=== PATIENT | female | born 1970 | race Caucasian/White ===

== ENCOUNTER 2017-06-01 12:10 | Outpatient (CLI) ==
[2013-09-28 16:04] VITALS: BMI 33.6
--- NOTE | 2017-06-01 13:08 | DI ---
EXAM: Lumbar spine three view HISTORY: Back pain COMPARISON: None TECHNIQUE: Three views lumbar spine were performed FINDINGS: Sacroiliac joints intact. Sacral arcuate intact. For the purposes of this examination, t here will be considered five lumbar vertebral bodies with partial lumbarization of S1. Vertebral bod ies normal height. No fracture. No subluxation. Small multilevel marginal osteophyte formation. S uggestion of facet arthrosis in the lower spine. IMPRESSION: Chronic discogenic degenerative disease and facet arthrosis.
== END 2017-06-01 12:11 | disposition home or self-care (01) ==
LOC: RAD 12:10
PROVIDERS: ATTEND Family Medicine
DX: M54.9 Dorsalgia, unspecified (principal)

== ENCOUNTER 2018-09-15 06:51 | Emergency (ER) | payer OTHER ==
[2018-09-15 06:56] VITALS: BP 158/87; TEMP 98.1; BMI 31.8
--- NOTE | 2018-09-15 07:14 | ED.PDOC ---
General ED Provider: Dr. NADYA DOMINIQUE Chief Complaint: Back Pain Stated Complaint: urinary stones.In the past GB removed and scan showing also urinary calculosis Time Seen by Physician: 12:41 Mode of Arrival: Walk-In Information Source: Patient, Family Exam Limitations: No limitations Primary Care Provider: DAVID SZYMANSKI Nursing and Triage Documentation Reviewed and Agree: Yes Does patient meet sepsis criteria?: No System Inflammatory Response Syndrome: Not Applicable Sepsis Protocol: For patient's 13 years and over: Temp is 96.8 and below OR 101 and greater Pulse >90 BPM Resp >20/minute Acutely Altered Mental Status Are patient's symptoms suggestive of a new infection, such as: -Pneumonia -Skin, Soft Tissue -Endocarditis -UTI -Bone, Joint Infection -Implantable Device -Acute Abdominal Infection -Wound Infection -Meningitis -Blood Stream Catheter Infection -Unknown Complaint Exam - UTI Female Complaint/Exam Symptoms Are: Still present Timing: Intermittent Initial Severity: Mild Current Severity: Moderate Location of Pain: Reports: Right, Flank, Radiating Associated Signs and Symptoms: Reports: Flank pain Related History: Reports: Similar episode Related Surgical History: Reports: None CVA Tenderness: Yes (right cva to flank tenderness with radiation-groin) Suprapubic Tenderness: No Differential Diagnoses: Pyelonephritis, Ureteral Calculus Review of Systems - Review Of Systems Constitutional: Reports: Loss of appetite, Other Eyes: Reports: Decreased acuity Ears, Nose, Mouth, Throat: Reports: No symptoms Respiratory: Reports: No symptoms Cardiac: Reports: No symptoms GI: Reports: No symptoms : Reports: Hematuria Musculoskeletal: Reports: No symptoms Skin: Reports: No symptoms Neurological: Reports: No symptoms Endocrine: Reports: No symptoms Hematologic/Lymphatic: Reports: No symptoms All Other Systems: Reviewed and Negative Past Medical History - Past Medical History Previously Healthy: Yes Endocrine: Reports: None Cardiovascular: Reports: None Respiratory: Reports: None Hematological: Reports: None Gastrointestinal: Reports: Crohn's Genitourinary: Reports: UTI, Kidney stones Neuro/Psych: Reports: None Musculoskeletal: Reports: None Cancer: Reports: None Last Menstrual Period: 3 weeks ago Other Pertinent Past Medical History: GB removed,CT was showing also kidney stones - Surgical History General Surgical History: Reports: Cholecystectomy - Family History Family History: Reports: None - Social History Smoking Status: Never smoker Hx Substance Use: No Alcohol Screening: None - Immunizations Tetanus Shot up to Date: Yes Influenza Vaccine within 12 Months: No Pneumococcal Vaccine up to Date: No Physical Exam - Physical Exam Appearance: Well-appearing Ill-appearing: None Pain Distress: Moderate Eyes: JOSIAS ENT: Ears normal Neck: Supple Respiratory: Airway patent Musculoskeletal: Normal strength Skin: Warm Neurological: Sensation intact Psychiatric: Mood appropriate Interpretation - Radiology Interpretation Radiology Interpretation By: Radiologist Radiology Results: Positive Exam Interpreted: CT Scan Xray Comments: nephrolithiasis left nonostr,Right 2 mm ure.stone c hydron. Re-Evaluation - Re-Evaluation Time of Re-Evaluation: 08:08 Status: Improved Vital Signs Stable: Yes Pain Level: responded to Ketorolac with decrease in pain and intensity Appearance: Other (appeares relaxed and comfortable when taken to Imaging for a CT) Lungs: Clear Skin: Warm and Dry Neuro: Alert and Oriented X3 CV: RRR - Re-Evaluation Time of Re-Evaluation: 11:20 Status: Improved Vital Signs Stable: Yes Pain Level: significant improvement after morphne [place] 2 mg x 3 and Phenergan Critical Care Note - Critical Care Note Total Time (mins): 0 Course - Course Hematology/Chemistry: 09/15/18 07:35 Orders, Labs, Meds: Lab Review 09/15/18 09/15/18 09/15/18 07:34 07:35 07:35 WBC 12.99 H RBC 4.18 L Hgb 12.1 Hct 36.4 L MCV 87.1 MCH 28.9 MCHC 33.2 RDW Coeff of [place]anna 13.2 Plt Count 256 Immature Gran % (Auto) 0.5 Neut % (Auto) 73.5 Lymph % (Auto) 18.9 [place] % (Auto) 5.5 Eos % (Auto) 1.1 Baso % (Auto) 0.5 Immature Gran # (Auto) 0.1 Neut # (Auto) 9.6 H Lymph # (Auto) 2.5 [place] # (Auto) 0.7 Eos # (Auto) 0.1 Baso # (Auto) 0.1 Urine Color Yellow Urine Clarity Clear Urine pH 5.5 Ur Specific [place] >=1.030 Urine Protein Negative Urine Glucose (UA) Negative Urine Ketones Negative Urine Blood 2+ Urine Nitrite Negative Urine Bilirubin Negative Urine Urobilinogen 0.2 Ur Leukocyte Esterase Negative Urine Microscopic RBC 2-5 Ur Squamous Epith Cells 20-30 Urine Bacteria 2+ Urine Test Negative Orders Category Date Time Status IV [ED IV/MEDIPORT/POWERPORT] .ONCE EMERGENCY 09/15/18 07:14 Active CBC W/ AUTO DIFF Stat LAB 09/15/18 07:35 Completed TEST URINE [URINE ] Stat LAB 09/15/18 07:35 Completed URINALYSIS WITH MICROSCOPIC Stat LAB 09/15/18 07:34 Completed 0.9 % Sodium Chloride [Saline Flush] MEDS 09/15/18 07:14 Active 1 syr IVF PRN PRN Ketorolac Tromethamine [Toradol] MEDS 09/15/18 07:16 Discontinued 30 mg IVP ONCE STA Morphine Sulfate [Morphine 2 mg/ml Syringe] MEDS 09/15/18 08:46 Discontinued 2 mg .ROUTE .STK-MED ONE Morphine Sulfate [Morphine 2 mg/ml Syringe] MEDS 09/15/18 08:43 Discontinued 2 mg IVP ONCE STA Morphine Sulfate [Morphine 2 mg/ml Syringe] MEDS 09/15/18 09:07 Discontinued 2 mg IVP ONCE STA Morphine Sulfate [Morphine 2 mg/ml Syringe] MEDS 09/15/18 10:42 Discontinued 2 mg IVP ONCE STA Ondansetron HCl/Pf [Zofran 4 mg/2 ml] MEDS 09/15/18 07:20 Discontinued 8 mg IVP ONCE STA Promethazine HCl [Phenergan 25 mg/ml Vial] MEDS 09/15/18 10:32 Discontinued 25 mg .ROUTE .STK-MED ONE Promethazine HCl [Phenergan 25 mg/ml Vial] 25 mg MEDS 09/15/18 10:30 Discontinued 0.9 % Sodium Chloride [Sodium Chloride] 50 ml IV ONCE Sodium Chloride 0.9% [Sodium Chloride] 1,000 ml MEDS 09/15/18 07:15 Discontinued IV BOLUS Sodium Chloride 0.9% [Sodium Chloride] 1,000 ml MEDS 09/15/18 10:[address] ABD/PEL WO RENAL STONE PROT Stat RADS 09/15/18 07:17 Completed Medications Generic Name Dose Route Start Last Admin Trade Name Freq PRN Reason Stop Dose Admin Sodium Chloride 1 syr 09/15/18 07:14 09/15/18 10:41 Saline Flush IVF 1 syr PRN PRN Administration To flush IV Discontinued Medications Generic Name Dose Route Start Last Admin Trade Name Freq PRN Reason Stop Dose Admin Sodium Chloride 1,000 mls @ 1,000 mls/hr 09/15/18 07:15 09/15/18 07:27 Sodium Chloride IV 09/15/18 08:14 1,000 mls/hr BOLUS STA Administration Sodium Chloride 1,000 mls @ 1,000 mls/hr 09/15/18 10:26 09/15/18 10:37 Sodium Chloride IV 09/15/18 11:25 1,000 mls/hr BOLUS STA Administration Promethazine HCl 25 mg/ Sodium 51 mls @ 75 mls/hr 09/15/18 10:30 09/15/18 10: 37 Chloride IV 09/15/18 11:10 75 mls/hr ONCE STA Administration Ketorolac Tromethamine 30 mg 09/15/18 07:16 09/15/18 07:30 Toradol IVP 09/15/18 07:17 30 mg ONCE STA Administration Morphine Sulfate 2 mg 09/15/18 08:43 09/15/18 08:48 Morphine 2 Mg/Ml Syringe IVP 09/15/18 08:44 2 mg ONCE STA Administration Morphine Sulfate 2 mg 09/15/18 09:07 09/15/18 09:22 Morphine 2 Mg/Ml Syringe IVP 09/15/18 09:08 2 mg ONCE STA Administration Morphine Sulfate 2 mg 09/15/18 10:42 09/15/18 10:43 Morphine 2 Mg/Ml Syringe IVP 09/15/18 10:43 2 mg ONCE STA Administration Ondansetron HCl 8 mg 09/15/18 07:20 09/15/18 07:28 Zofran 4 Mg/2 Ml IVP 09/15/18 07:21 8 mg ONCE STA Administration Vital Signs: Temp Pulse Resp BP Pulse Ox 09/15/18 06:54 98.1 F 74 20 158/87 H 97 stable vital signs,Remains afebrile.Nausea subsided after Zofran dose in approx 15 min, Departure - Departure Time of Disposition: 12:37 Disposition: HOME SELF-CARE Discharge Problem: Urolithiasis Instructions: Kidney Stones (ED) Condition: Good Pt referred to PMD for follow-up: No (follow with PCP of choice) IPMP verified?: No Allergies/Adverse Reactions: Allergies erythromycin base [Erythromycin Base] Adverse Reaction (Verified 09/15/18 06:56) Home Medications: Ambulatory Orders Metoprolol Succinate [Toprol Xl] 25 mg PO DAILY 09/28/13 Multivitamin 1 cap PO DAILY 09/28/13 Metformin HCl [Glucophage] 1,000 mg PO BID 09/15/18 Disposition Discussed With: Patient, Family, Other (Take home Adel 5/325 t tab Q 6h prn # 7 tabs.)
[2018-09-15] MEDS ORDERED: SODIUM CHLORIDE 1,000 ML IV STA ×2 (07:15→10:26)
[2018-09-15] MEDS ORDERED: TORADOL IVP STA (07:16)
[2018-09-15] MEDS ORDERED: ZOFRAN 4 MG/2 ML IVP STA (07:20)
[2018-09-15 07:55] LABS: URINE PREGNANCY TEST NEGATIVE (NEGATIVE)
--- NOTE | 2018-09-15 08:36 | CT ---
EXAM: CT of the abdomen pelvis without contrast History: Right flank pain. Technique: Multiplanar CT images through the abdomen pelvis were obtained without the administration of IV contrast Findings: Lung bases are clear. No acute osseous abnormalities. Status post cholecystectomy. No focal liver or splenic lesions. No peripancreatic inflammation. Ad renal glands are unremarkable. Multiple left renal calculi with the largest measuring 4 mm. 2 mm ca lculus within the distal right ureter causing mild right hydronephrosis. No bowel obstruction. No f ree air and no ascites. No bladder wall thickening. Adnexal structures appear appropriate for patie nt's age. No perirectal inflammation. Scattered colonic stool. Colonic diverticulosis. Impression: 1. 2 mm distal right ureteral calculus causing mild right hydronephrosis. 2. Nonobstructing left nephrolithiasis. 3. Colonic diverticulosis
[2018-09-15] MEDS ORDERED: MORPHINE 2 MG/ML SYRINGE IVP STA ×3 (08:43→10:42)
[2018-09-15] MEDS ORDERED: MORPHINE 2 MG/ML SYRINGE ONE (08:46)
[2018-09-15] MEDS ORDERED: MORPHINE 2 MG/ML SYRINGE IM STA (10:25)
[2018-09-15] MEDS ORDERED: PHENERGAN 25 MG/ML VIAL 25 MG in SODIUM CHLORIDE 50 ML IV STA (10:30)
[2018-09-15] MEDS ORDERED: PHENERGAN 25 MG/ML VIAL ONE (10:32)
== END 2018-09-15 12:53 | disposition home or self-care (01) ==
LOC: ED 06:51
DX: N20.9 Urinary calculus, unspecified (principal); Z87.442 Personal history of urinary calculi
CPT/HCPCS: 36415; 74176; 81001; 81025; 85025; 96361; 96365; 96375; 96376; 99283

== ENCOUNTER 2018-09-28 15:44 | Outpatient (CLI) | END 2018-09-28 15:45 | disposition home or self-care (01) | LOC: LAB 15:44 | PROVIDERS: ATTEND Emergency Medicine | DX: N20.0 Calculus of kidney (principal); R31.9 Hematuria, unspecified | CPT/HCPCS: 82360 ==